=== PATIENT | male | born 1980 | race Caucasian/White ===

== ENCOUNTER 2017-08-05 10:36 | Inpatient (IN) | payer OTHER ==
[~2017-08-05] VITALS: Ht 175 cm; Wt 107.0 kg
--- NOTE | ~2017-08-05 | CON ---
[place], [place] REPORT OF CONSULTATION NAME: VANGIE RUBIO UNIT #: [id number] ROOM: 424 DOCTOR: LIBORIO MARTIN BIRTHDATE: [birth year] DOS: 08/06/2017 CHIEF COMPLAINT: Anxiety, depression and alcohol dependence. HISTORY OF PRESENT ILLNESS: This is a 37-year-old white male who presented to the ER yesterday requesting admission to the [facility] for alcohol withdrawal. He reports he has been drinking at least a fifth of hard liquor a day for over 10 years to cope with his depression. He reports that he has been to [facility] twice in the last 5 years, most recent being 2 years ago. He states that his last drink was on 08/04/2017 at approximately 2:30 in the afternoon. He states that some of the stressors related to his depression and anxiety are that he has a son who is 9-1/2 who lives in [place]. He said the relationship with the boy's mother is strained as she is very manipulative. He reports he has been going to mental health treatment at [facility] and seeing the psychiatrist as well as Deya for counseling for many years. He states that he has medication management that works for him. PAST MEDICAL HISTORY: Significant for asthma, fatty liver, general anxiety, hyperlipidemia, major depressive disorder, obesity, type 2 diabetes, alcohol abuse, smoker and marijuana abuse. DIAGNOSES: 1. Alcohol dependence. 2. Generalized anxiety disorder. 3. Major depression, moderate, recurrent. No psychotic features. RECOMMENDATIONS: The patient is currently enrolled in the [facility] here at the [facility] for alcohol rehab. I believe this is a good course for him. Upon completing rehabilitation and detox, he would like to follow up with his counselor and psychiatrist at [facility] as he is well established with them and they know his story well. I believe this is a safe plan for the patient. He does appear to be somewhat manipulative in an attempt to obtain medications as do not experience withdrawal symptoms. He mentioned on several occasions the need for Ativan. I did discuss this with the hospitalist on the floor. He will be continued to monitor closely. I recommend the patient continue with [facility] and follow up as an outpatient with [facility]. Thank you for the consultation. [place], [place] REPORT OF CONSULTATION NAME: VANGIE RUBIO UNIT #: [id number] ROOM: 424 DOCTOR: LIBORIO MARTIN BIRTHDATE: [birth year] COM[place] Maya CM:CONSTR:REPORT OF CONSULTATION [id number] 08/06/17 0934 interface
[~2017-08-05 10:36] MED LIST: ANTABUSE500 MG PO; ATARAX,VISTARIL50 MG PO; ATIVAN2 MG PO; BUSPAR10 MG PO; BUSPAR5 MG PO; FORADIL AERO0.012 MG INH; JANUVIA50 MG PO; LIPITOR20 MG PO; METFORMIN1000 MG PO; ONDANSETRON HYDR4 M1 PO; QVAR 40MCG7.3 G1 INH; SINEMET 25-100M1 TAB PO; VENTOLIN0.09 MG/AC INH; XANAX1 MG PO; ZOLOFT100 MG PO; ZOLOFT50 MG PO
[2017-08-05 10:57] VITALS: BP 148/111
--- NOTE | 2017-08-05 11:00 | NUR ---
PT NOW TO ROOM AFTER REGISTRATION PT WENT OUT TO SMOKE PRIOR TO TRIAGE.
[2017-08-05 11:08] VITALS: BP 166/98
--- NOTE | 2017-08-05 11:29 | NUR ---
UNABLE TO URINATE. DRINKING GATORADE TO TRY TO PROVIDED URINE SPECIMIN.
[2017-08-05 11:42] LABS: BASO % 0.4 % (0.0-1.0); EOS # 0.1 10*3/uL (0.0-0.4); EOS % 0.6 % (1.0-4.0); HEMATOCRIT 43.9 % (42.0-52.0); HEMOGLOBIN 15.5 g/dl (14.0-18.0); LYMPH # 2.5 10*3/uL (1.3-4.4); LYMPH % 25.1 % (27.0-41.0); MEAN CELL VOLUME 94.8 fl (80.0-94.0); MEAN CORPUSCULAR HGB 33.5 pg (27.0-31.0); MEAN CORPUSCULAR HGB CONC 35.3 g/dl (33.0-37.0); MEAN PLATELET VOLUME 9.7 fl (9.6-12.3); MONO # 0.9 10*3/uL (0.1-1.0); NEUT # 6.5 10*3/uL (2.3-7.9); NEUT % 64.7 % (47.0-73.0); PLATELET COUNT AUTOMATED 188 10*3/uL (130-400); RED BLOOD COUNT 4.63 10*6/uL (4.50-5.90); RED CELL DISTRI WIDTH 12.3 % (0-14.5)
[2017-08-05 11:57] LABS: ALBUMIN 3.9 gm/dl (3.1-4.5); ALKALINE PHOSPHATASE 69 U/L (45-117); BUN 11 mg/dl (7-24); CHLORIDE 97 mmol/L (98-107); CREATININE 1.01 mg/dL (0.70-1.30); POTASSIUM 3.4 mmol/L (3.5-5.1); SGOT/AST 42 IU/L (3-35); SGPT/ALT 71 U/L (12-78); SODIUM 137 mmol/L (136-145)
[2017-08-05 11:58] LABS: ETHYL ALCOHOL < 3.0 mg/dl (<3)
[2017-08-05 12:00] VITALS: BP 157/89
--- NOTE | 2017-08-05 15:57 | NUR ---
DR. PAULINO NOTIFIED OF CONSULT.
[2017-08-05 16:00] VITALS: BP 144/95
[2017-08-05 17:24] LABS: BILIRUBIN NEGATIVE (NEGATIVE); BLOOD NEGATIVE (NEGATIVE); CLARITY SL CLOUDY (CLEAR); COLOR YELLOW (YELLOW); GLUCOSE NEGATIVE (NEGATIVE); KETONE TRACE (NEGATIVE); LEUKO ESTERASE 1+ (NEGATIVE); NITRITE NEGATIVE (NEGATIVE); SPECIFIC GRAVITY <= 1.005 (1.005-1.030); UROBILINOGEN 0.2 E.U./dl (0.2-1.0)
[2017-08-05 17:30] LABS: BACTERIA 1+; EPITHELIAL CELLS 0-2; RBC 0-2 rbc/hpf (0-2)
[2017-08-05 17:33] LABS: URINE AMPHETAMINES > 1000 (1000ng/ml); URINE BARBITURATES < 200 (200ng/ml); URINE BENZODIAZEPINES > 200 (200ng/ml); URINE CANNABINOIDS (THC) > 50 (50ng/ml); URINE COCAINE < 300 (300ng/ml); URINE METHADONE < 300 (300ng/ml); URINE OPIATES < 300 (300ng/ml)
[2017-08-05 17:41] LABS: URINE PHENCYCLIDINE < 25 (25ng/ml)
[2017-08-05] MEDS ORDERED: XANAX1 MG PO (18:53)
[2017-08-05] MEDS ORDERED: GLIPIZIDE ER5 MG PO (18:57)
[2017-08-05] MEDS ORDERED: LAMICTAL100 MG PO (18:58)
[2017-08-05] MEDS ORDERED: NORVASC2.5 MG PO (18:58)
[2017-08-05] MEDS ORDERED: DEPAKOTE500 MG PO (18:59)
[2017-08-05] MEDS ORDERED: DEPAKOTE DR500 MG PO (18:59)
[2017-08-05] MEDS ORDERED: GABAPENTIN400 MG PO (19:00)
[2017-08-05 20:00] VITALS: BP 157/90
--- NOTE | 2017-08-05 20:15 | NUR ---
C/O ANXIETY, MUSCLE CRAMPING AND STOMACH CRAMPING. VISTARIL, ROBAXIN AND BENTYL GIVEN PER ORDER SEE MAR.
--- NOTE | 2017-08-05 21:15 | NUR ---
DERRICK HELPING WITH ANXIETY, RONDA AND AUSTIN HELPED WITH MUSCLE AND STOACH CRAMPING.
--- NOTE | 2017-08-05 22:45 | NUR ---
PT. WANTED TO KNOW WHY NOONE HAS CHECKED HIS BLOOD SUGAR. PT. IS DIABETIC. BEDSIDE GLUCOSE CHECKED 132 PT. TOLD THIS RN "I TOOK MY METFORMIN AND MY JANUVIA SINCE NO ONE HAS GIVEN THAT TO ME." HAD PATIENT CLARIFY WITH ME THAT HE ACTUALLY TOOK THE MEDICATION TONIGHT HERE AT HOSPITAL PT. SAID "I BROUGHT MY MEDICATIONS WITH ME." EXPLAINED TO PATIENT THAT HE SHOULD NOT HAVE HIS HOME MEDICATIONS HERE AND THAT I WILL HAVE TO TAKE THEM AND SEND THEM TO THE PHARMACY TO KEEP UNTIL HE IS DISCHARGED. THAT HE IS NOT ALLOWED TO SELF MEDICATE WHILE HE IS HERE. PT. GAVE THIS RN ALL HIS MEDICATIONS.
--- NOTE | 2017-08-05 23:45 | NUR ---
TRAZODONE GIVEN PER ORDER FOR INSOMNIA. PT. VERY ANXIOUS TALKING ALOT. LIBRIUM GIVEN PER ORDER.
[2017-08-06] VITALS: BP 135/85
--- NOTE | 2017-08-06 00:30 | NUR ---
PT. THOUGHT HEART MONITOR WITH A MUSIC [employer]ISE AND SAID HE TRIED TO GET MUSIC FROM IT BUT DIDN'T KNOW THE PASSWORD. REORIENTED PT. TO IT BEING A HEART MONITOR AND PT. ALSO THAT FOR A MINUTE THAT THIS RN WAS A COUSIN BUT REORIENTED HIMSELF. PT. CLIMB INTO BED AND IS GOING TO SLEEP NOW. WILL CONTINUE TO MONITOR PT.
--- NOTE | 2017-08-06 02:10 | NUR ---
NOTIFIED DR. EMMANUEL OF PT. TAKING ON MEDICATION FROM HOME AND OF [facility] NO NEW ORDERS RECIEVED.
--- NOTE | 2017-08-06 03:03 | NUR ---
SLEEPING, SNORING RESPIRATIONS.
[2017-08-06 03:57] VITALS: BP 114/76
[2017-08-06 08:00] VITALS: BP 152/122
--- NOTE | 2017-08-06 08:12 | NUR ---
NOTIFIED DR. MCNULTY OF PT'S BP.
[2017-08-06 12:00] VITALS: BP 136/76
--- NOTE | 2017-08-06 12:20 | NUR ---
PATIENT IS A NEW VISION PATIENT. PATIENT WANTS THE VIVITROL SHOT. PATIENT WAS REFERRED TO [facility]. [place] STAFF WILL FOLLOW-UP WITH PATIENT. PAMELA GUTIERREZ B.A. PAINT DEPARTMENT SUPERVISOR
--- NOTE | 2017-08-06 15:16 | NUR ---
ATIVAN GIVEN FOR C/O ANXIETY, ROBAXIN GIVEN FOR C/O MUSCLE ACHES, ZOFRAN GIVEN FOR C/O NAUSEA. WILL MONITOR.
[2017-08-06 16:00] VITALS: BP 109/64
--- NOTE | 2017-08-06 16:30 | NUR ---
ATIVAN, ROBAXIN AND ZOFRAN EFFECTIVE PER PT.
--- NOTE | 2017-08-06 19:26 | NUR ---
PT. TO DESK SAYS "MY MIND IS RACING." TO SOON FOR ATIVAN. VISTARIL GIVEN PER ORDER FOR ANXIETY. PT. DOING MEDITATION TO TRY AND CALM. WILL CONTINUE TO MONITOR.
[2017-08-06 20:00] VITALS: BP 147/69
--- NOTE | 2017-08-06 21:35 | NUR ---
ROBAXIN GIVEN FOR MUSCLE ACHES SEE MAR.
--- NOTE | 2017-08-06 21:38 | NUR ---
VISTARIL EFFECTIVE PT. TALKATIVE BUT IS LESS OF THE MIND RACING.
--- NOTE | 2017-08-06 22:30 | NUR ---
ROBAXIN EFFECTIVE FOR MUSCLE ACHES PER PT.
[2017-08-07] VITALS: BP 147/93
[2017-08-07 00:37] VITALS: BP 140/78
--- NOTE | 2017-08-07 00:38 | NUR ---
BLOOD PRESSURE RECHECKED AND 140/78 MANUALLY. PT. HAD BEEN UP WALKING HALLWAY EARLIER WHEN BLOOD PRESSURE WAS TAKEN AND WAS 147/93.
[2017-08-07 03:49] VITALS: BP 138/88
--- NOTE | 2017-08-07 05:58 | NUR ---
PT. AWAKE C/O MIND RACING, MILD TREMORS NOTED, NAUSEATED ACHING ALL OVER. PT. REFUSED VISTARIL FOR INCREASED ANXIETY. ATIVAN GIVEN PER ORDER FRO DT, ZOFRAN GIVEN FOR NAUSEA, ROBAXIN GIVEN FOR MUSCLE ACHES. SEE MAR.
--- NOTE | 2017-08-07 07:06 | NUR ---
ATIVAN EFFECTIVE FOR ANXIETY PT. STATED "I'M STARTING TO CALM DOWN." MILD TREMORS RELAXING.ZOFRAN EFFECTIVE FOR NAUSEA AND ROBAXIN EFFECTIVE FOR MUSCLE BACK ACHES PER PT.
[2017-08-07 08:04] VITALS: BP 132/78
--- NOTE | 2017-08-07 09:03 | NUR ---
MEDICATED WITH PRN PO MOTRIN AND VISTARIL FOR HEAD AND BILATERAL THIGHS ACHING AND ANXIETY.
--- NOTE | 2017-08-07 09:59 | NUR ---
PRN PO MOTRIN EFFECTIVE FOR PAIN, PRN PO VISTARIL SOMEWHAT EFFECTIVE FOR ANXIETY, PER PATIENT.
[2017-08-07 12:00] VITALS: BP 133/81
--- NOTE | 2017-08-07 13:24 | NUR ---
MEDICATED WITH PRN PO ROBAXIN AND TYLENOL FOR MUSCLE CRAMPS AND GENERALIZED BODY PAIN.
--- NOTE | 2017-08-07 14:11 | NUR ---
[place] STAFF GAVE PATIENT HIS APPOINTMENT FOR HIS VIVITROL SHOT AT [facility]. PATIENT STATED THAT HE WANTS TO LEAVE AM. [place] STAFF SPOKE WITH PATIENT ABOUT THE IMPORTANCE OF HIM STAYING AND FINISHING OUT THE SERVICE. PATIENT STATED THAT HE WILL NOTIFY STAFF IF HE DECIDES TO LEAVE AM. PAMELA GUTIERREZ B.A. INSURANCE SALES AGENT
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
== END 2017-08-07 14:27 | disposition left against medical advice (07) | DRG 894 ==
LOC: ED 10:36 → 4E 11:24
PROVIDERS: Emergency Medicine; ADMIT Internal Medicine
DX: F10.230 Alcohol dependence with withdrawal, uncomplicated (principal); F33.1 Major depressive disorder, recurrent, moderate; D72.810 Lymphocytopenia; E66.9 Obesity, unspecified; E11.9 Type 2 diabetes mellitus without complications; E78.5 Hyperlipidemia, unspecified; E87.6 Hypokalemia; I10 Essential (primary) hypertension; R74.0 Nonspecific elevation of levels of transaminase and lactic acid dehydrogenase [LDH]; J45.909 Unspecified asthma, uncomplicated; Z53.21 Procedure and treatment not carried out due to patient leaving prior to being seen by health care provider; F41.1 Generalized anxiety disorder; Z71.6 Tobacco abuse counseling; Z72.0 Tobacco use; Z79.84 Long term (current) use of oral hypoglycemic drugs; Z79.899 Other long term (current) drug therapy; Z68.34 Body mass index [BMI] 34.0-34.9, adult